=== PATIENT | female | born 1950 | race Two or more races ===

== ENCOUNTER 2025-06-05 09:24 | Outpatient (AMB) | payer MEDICARE, MEDICAID, SELFPAY ==
--- NOTE | 2025-06-05 09:31 | ORTHONT_ITS ---
Vital signs 06/05/25 09:44 Height 1.55 m Height Method Measured Weight 68.577 kg Weight Measurement Method Standing Scale BMI 28.5 BP 165/76 H Blood Pressure Source Automatic Cuff Blood Pressure Location Left Upper Arm Position Sitting Respiration 16 Pulse 68 Pulse Source Monitor Temp 98.5 F Temp Source Temporal Artery Scan Pulse Oximetry (%) 95 Oxygen Delivery Method Room Air Med/Allergies Allergies & Medications Allergies aspirin Allergy (Verified 06/05/25 09:45) Medication Reconciliation atorvastatin 40 mg tablet 40 mg PO QDAY 06/05/25 [History Confirmed 06/05/25] gabapentin 100 mg capsule 100 mg PO TID #60 caps 06/05/25 [Rx] lisinopril 10 mg tablet 10 mg PO QDAY 06/05/25 [History Confirmed 06/05/25] meloxicam 7.5 mg tablet 7.5 mg PO QDAY #45 tabs 06/05/25 [Rx] metformin 500 mg tablet 500 mg PO QDAY 06/05/25 [History Confirmed 06/05/25] Exam Exam Breathing is nonlabored. Patient has a normal mood and affect. Bilateral extremities were evaluated and demonstrates sensation intact to light touch. Palpable pedal pulses are present. No significant edema is present. Bilateral hips were examined. The patient has no pain with log roll of the hips. Internal rotation to 30 degrees and external rotation to 30 degrees is painless. Negative FADIR. Left knee was examined today. The left knee is in reasonable alignment. Range of motion from 0-120 degrees. Knee is stable to varus and valgus as well as AP translation with <5mm. Patient has a negative McMurrays. There is no pain with patellofemoral compression and no crepitus noted. The knee is nontender to palpation. The right knee was also examined. The right knee is in varus alignment. Range of motion from 0-115 degrees. Knee is stable to varus and valgus as well as AP translation with <5mm. Patient has a negative McMurrays. There is no pain with patellofemoral compression and no crepitus noted. The knee is tender to palpation medially. Assessment and Plan Problem List (1) Arthritis of knee, right: Status: Acute Plan: Patient is a pleasant 75-year-old female with right knee pain and right knee arthritis of moderate severity. We will also get repeat x-rays that are weightbearing. I will see the patient back after the x-rays are done we will discuss injections. She would like to start with anti-inflammatories as well as gabapentin for her diabetic neuropathy as well. I discussed that she should see a vp security that should talk to her primary care provider about this Advanced Care Planning Discussion Advance care planning discussed with:: patient Office Procedures GNS Level of Care Nursing/Assessment Patient Status: Initial/New Patient Nursing Assessment/Reassesment: Medication Reconciliation, Update PMH in EMR and Vital Signs Coordination of Care: Complex Care and Chronic Disease 1-5, Education Complex Pt/Fam, Consent,records obtained, informed consent, Lab and Imaging orders, Results/Orders obtained and Staff clarify orders Special Needs: Language special needs New Patient Charge New Patient Point Assignment: 0211 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 Level 3 ([id number]) MA Intake Visit Data Collection New Patient or Established: New Patient (never been to [facility]) Reason for Visit:: PAIN RIGHT KNEE Seen by Clinical Staff ONLY (RN/MA): No Contact Lens Lathe Operator Required: No PCP or OBGYN visit in last 3 months: Yes Hx Now: No Do You Feel Safe at Home: Yes Authorities Contacted: N/A Questionairres Past Medical History Past Medical History Have you ever been diagnosed with any of the following: Cardiology Problems Hypercholesterolemia: Yes Hypertension: Yes Endocrine Problems Diabetes Mellitus Type 1: Yes Subjective Visit Visit for: new patient and knee Immunization / Flu Flu Vaccine in the Last 12 Months: Yes Flu Vaccine Exclusion Criteria: Already Received History of Present Illness Chief complaint: RIGHT KNEE PAIN Date of injury / onset of symptoms: 1 MONTH Patient is a 75-year-old female with right knee pain as well as numbness and tingling of both feet. She has a history of diabetes for over 8 years. She has not had any neuropathy medications. She has not had any injections in the past as well Personal History Occupation: RETIRED Red flag PMH: none BMI Counceling provided: No Pain Pain level (0-10): 7 Pain location: inside (medial) Pain quality: aching Pain timing: increases with activity Associated signs & symptoms: numbness Ambulatory data Ambulatory device: none Walking distance (minutes): 5 Treatments Number of previous injections: 0 Improvement with previous injections: No Number of Physical Therapy sessions: 0 Improvement with PT: No Improvement with NSAIDS: no Review of Systems Review of Systems: All systems negative unless otherwise noted in HPI.
[2025-06-05 09:44] VITALS: BP 165/76; PULSE 68; RESP 16; TEMP 36.9; O2SAT 95; BMI 28.5
--- NOTE | 2025-06-05 09:57 | XR_ITS ---
Examination: Bilateral AP knees single view, right knee PA lateral axial 3 views TECHNIQUE: Bilateral AP knees standing single view Right knee PA standing flexion, standing lateral, axial right knee 3 views total 4 views Date and time: June 05, 2025 1021 hours INDICATIONS: Right knee pain beginning 2 months ago. FINDINGS: Moderate osteopenia Moderate to advanced narrowing medial joint space right knee Mild narrowing patellofemoral joint No fracture or patellar dislocation IMPRESSION: Moderate to advanced narrowing medial joint space right knee
== END 2025-06-05 10:04 | disposition home or self-care (01) ==
LOC: HODSRG 09:24
PROVIDERS: PCP Physician Assistant; Referring Provider Physician Assistant; Supervising Provider Orthopaedic Surgery Adult Reconstructive Orthopaedic Surgery; Visit Provider Orthopaedic Surgery Adult Reconstructive Orthopaedic Surgery
DX: M17.11 Unilateral primary osteoarthritis, right knee (principal); M25.561 Pain in right knee; E78.00 Pure hypercholesterolemia, unspecified; I10 Essential (primary) hypertension; R20.0 Anesthesia of skin; R20.2 Paresthesia of skin; E10.9 Type 1 diabetes mellitus without complications
CPT/HCPCS: 73564; 99203; G0463

== ENCOUNTER 2025-07-15 10:01 | Outpatient (AMB) | payer MEDICARE, MEDICAID, SELFPAY ==
[2025-07-15 10:36] VITALS: BP 141/81; PULSE 74; RESP 19; TEMP 36.8; O2SAT 97; BMI 29.0
--- NOTE | 2025-07-15 10:36 | ORTHONT_ITS ---
Vital signs 07/15/25 10:36 Height 1.55 m Height Method Measured Weight 69.91 kg Weight Measurement Method Standing Scale BMI 29.0 BP 141/81 H Blood Pressure Source Automatic Cuff Blood Pressure Location Left Upper Arm Position Sitting Respiration 19 Pulse 74 Pulse Source Monitor Temp 98.2 F Temp Source Temporal Artery Scan Pulse Oximetry (%) 97 Oxygen Delivery Method Room Air Med/Allergies Allergies & Medications Allergies aspirin Allergy (Verified 07/15/25 10:37) Medication Reconciliation atorvastatin 40 mg tablet 40 mg PO QDAY 06/05/25 [History Confirmed 07/15/25] gabapentin 100 mg capsule 100 mg PO TID #60 caps 06/05/25 [Rx Confirmed 07/15/25] lisinopril 10 mg tablet 10 mg PO QDAY 06/05/25 [History Confirmed 07/15/25] meloxicam 7.5 mg tablet 7.5 mg PO QDAY #45 tabs 06/05/25 [Rx Confirmed 07/15/25] metformin 500 mg tablet 500 mg PO QDAY 06/05/25 [History Confirmed 07/15/25] Exam Exam Breathing is nonlabored. Patient has a normal mood and affect. Bilateral extremities were evaluated and demonstrates sensation intact to light touch. Palpable pedal pulses are present. No significant edema is present. Bilateral hips were examined. The patient has no pain with log roll of the hips. Internal rotation to 30 degrees and external rotation to 30 degrees is painless. Negative FADIR. Left knee was examined today. The left knee is in reasonable alignment. Range of motion from 0-120 degrees. Knee is stable to varus and valgus as well as AP translation with <5mm. Patient has a negative McMurrays. There is no pain with patellofemoral compression and no crepitus noted. The knee is nontender to palpation. The right knee was also examined. The right knee is in varus alignment. Range of motion from 0-115 degrees. Knee is stable to varus and valgus as well as AP translation with <5mm. Patient has a negative McMurrays. There is no pain with patellofemoral compression and no crepitus noted. The knee is tender to palpation medially. X-rays demonstrate moderate joint space narrowing and arthritis Assessment and Plan Problem List (1) Arthritis of knee, right: Status: Acute Plan: Patient is a pleasant 75-year-old female with right knee pain and right knee arthritis of moderate severity. She has been happy with just with no meloxicam currently. She does not want any injections Advanced Care Planning Discussion Advance care planning discussed with:: patient Office Procedures GNS Level of Care Nursing/Assessment Patient Status: Established Patient Nursing Assessment/Reassesment: Medication Reconciliation, Update PMH in EMR and Vital Signs Coordination of Care: Complex Care and Chronic Disease 1-5, Education Complex Pt/Fam, Consent,records obtained, informed consent, Results/Orders obtained and Staff clarify orders Established Patient Charge Established Patient Point Assignment: 95 Established Patient Point Charge: EP Level 3 (80-115) MA Intake Visit Data Collection New Patient or Established: Established Patient (seen at [facility] within 3 years) Reason for Visit:: 4 WEEK F/U POSSIBLE INJECTION Seen by Clinical Staff ONLY (RN/MA): No Engineering Production Worker Required: No PCP or OBGYN visit in last 3 months: Yes Hx Now: No Do You Feel Safe at Home: Yes Authorities Contacted: N/A Questionairres Past Medical History Past Medical History Have you ever been diagnosed with any of the following: Cardiology Problems Hypercholesterolemia: Yes Hypertension: Yes Endocrine Problems Diabetes Mellitus Type 1: Yes Subjective Visit Visit for: follow up visit and knee Immunization / Flu Flu Vaccine in the Last 12 Months: Yes Flu Vaccine Exclusion Criteria: Already Received History of Present Illness Chief complaint: 4 WEEK F/U POSSIBLE Date of injury / onset of symptoms: 1 MONTH Patient is a 75-year-old female with right knee pain as well as numbness and tingling of both feet. She has a history of diabetes for over 8 years. She has not had any neuropathy medications. She has not had any injections in the past as well. She reports she is happy with the medications. Personal History Occupation: RETIRED Red flag PMH: none BMI Counceling provided: No Pain Pain level (0-10): 0 Pain location: inside (medial) Pain quality: aching Pain timing: increases with activity Associated signs & symptoms: numbness Ambulatory data Ambulatory device: none Walking distance (minutes): 5 Treatments Number of previous injections: 0 Improvement with previous injections: No Number of Physical Therapy sessions: 0 Improvement with PT: No Improvement with NSAIDS: no Review of Systems Review of Systems: All systems negative unless otherwise noted in HPI.
== END 2025-07-15 11:05 | disposition home or self-care (01) ==
LOC: HODSRG 10:01
PROVIDERS: PCP Physician Assistant; Referring Provider Physician Assistant; Supervising Provider Orthopaedic Surgery Adult Reconstructive Orthopaedic Surgery; Visit Provider Orthopaedic Surgery Adult Reconstructive Orthopaedic Surgery
DX: M25.561 Pain in right knee (principal); M17.11 Unilateral primary osteoarthritis, right knee; E10.9 Type 1 diabetes mellitus without complications; Z79.84 Long term (current) use of oral hypoglycemic drugs
CPT/HCPCS: 99213; G0463